=== PATIENT | female | born 1950 | race Caucasian/White ===

== ENCOUNTER 2016-05-26 10:19 | Emergency (ER) | payer SELFPAY ==
--- NOTE | 2016-05-26 10:50 | ER Document Report ---
ED General - General Chief Complaint: Shortness Of Breath Stated Complaint: LEFT SIDE NUMBNESS TRAVEL OUTSIDE OF THE [place] IN LAST 30 DAYS: No - HPI Patient complains to provider of: shortness of breath upper extremity numbness Notes: Shortness of breath and left upper extremity numbness upon leaving the shower this morning. Patient moving all 4 extremities. No signs of unilateral weakness. No past medical problems no recent travel - Related Data Allergies/Adverse Reactions: No Known Allergies Allergy (Verified 05/26/16 10:27) Past Medical History - Social History Smoking Status: Unknown if Ever Smoked Family History: Reviewed & Not Pertinent Patient has suicidal ideation: No Patient has homicidal ideation: No Pulmonary Medical History: Denies: Hx Tuberculosis Renal/ Medical History: Denies: Hx Peritoneal Dialysis Past Surgical History: Reports: Hx Orthopedic Surgery - L ANKLE Review of Systems - Review of Systems Notes: Shortness of breath left arm numbness Physical Exam - Vital signs Vitals: Temp Pulse Resp BP Pulse Ox 97.7 F 91 18 147/97 H 99 05/26/16 10:32 05/26/16 10:32 05/26/16 10:32 05/26/16 10:32 05/26/16 10:32 - Cardiovascular Rhythm: Regular Heart sounds: Normal auscultation Course - Vital Signs Vital signs: Temp Pulse Resp BP Pulse Ox 97.7 F 91 18 147/97 H 99 05/26/16 10:32 05/26/16 10:32 05/26/16 10:32 05/26/16 10:32 05/26/16 10:32
[2016-05-26] MEDS ORDERED: PSEUDOEPHEDRINE HCL 30 MG TABLET PO ONE (11:03)
--- NOTE | 2016-05-26 11:08 | ER Document Report ---
ED General - General Mode of Arrival: Ambulatory Information source: Patient TRAVEL OUTSIDE OF THE [place] IN LAST 30 DAYS: No - HPI Patient complains to provider of: Shortness of Breath Onset: This morning Associated symptoms: Other - see notes above <BREE LIRA - Last Filed: 05/26/16 11:57> <KAREN ORNELAS - Last Filed: 05/26/16 18:21> - General Chief Complaint: Shortness Of Breath Stated Complaint: LEFT SIDE NUMBNESS Notes: 65 year old female presents to the ED complaining of shortness of breath and right arm numbness and tingling that started this morning. Patient reports that this has never happened before. Over the past few days, the patient has been having sinus congestion, drainage, and and a sensation that her ears are "plugged." Patient is also complaining of dizziness that is exacerbated with certain head movements. Patient denies any generalized pain or exerting herself to the point of straining her right arm. Patient does not have a primary care provider. (BREE LIRA) - Related Data Allergies/Adverse Reactions: No Known Allergies Allergy (Verified 05/26/16 10:27) Past Medical History - General Information source: Patient - Social History Smoking Status: Unknown if Ever Smoked Family History: Reviewed & Not Pertinent Patient has suicidal ideation: No Patient has homicidal ideation: No Pulmonary Medical History: Denies: Hx Tuberculosis Renal/ Medical History: Denies: Hx Peritoneal Dialysis Past Surgical History: Reports: Hx Cholecystectomy - 3 years ago, Hx Orthopedic Surgery - L ANKLE <BREE LIRA - Last Filed: 05/26/16 11:57> Review of Systems - Review of Systems Constitutional: No symptoms reported EENT: See HPI, Sinus pressure, Sinus discharge, Other - ears feel "plugged" Cardiovascular: No symptoms reported Respiratory: See HPI, Short of breath Gastrointestinal: No symptoms reported Genitourinary: No symptoms reported Female Genitourinary: No symptoms reported Musculoskeletal: No symptoms reported Skin: No symptoms reported Hematologic/Lymphatic: No symptoms reported Neurological/Psychological: See HPI, Numbness - right arm, Tingling - right arm -: Yes All other systems reviewed and negative <BREE LIRA - Last Filed: 05/26/16 11:57> Physical Exam - Vital signs Interpretation: Normal - General General appearance: Appears well, Alert - HEENT Head: Normocephalic, Atraumatic Eyes: Normal Pupils: PERRL Tympanic membrane: Other - Fluid behind bilateral tympanic membranes, left greater than right. No: Hemotympanum, Injected Mouth/Lips: Normal Mucous membranes: Normal Pharynx: Normal - Respiratory Respiratory status: No respiratory distress Chest status: Nontender Breath sounds: Normal Chest palpation: Normal - Cardiovascular Rhythm: Regular Heart sounds: Normal auscultation Murmur: No - Abdominal Inspection: Normal Distension: No distension Bowel sounds: Normal Tenderness: Nontender Organomegaly: No organomegaly - Back Back: Normal, Nontender - Extremities General upper extremity: Normal inspection, Tender, Normal color, Normal ROM, Normal temperature General lower extremity: Normal inspection, Nontender, Normal color, Normal ROM , Normal temperature, Normal weight bearing. No: Esthela's sign Shoulder: Normal Arm: Tender - Tender over her proximal left bicep - Neurological Neuro grossly intact: Yes Cognition: Normal Orientation: AAOx4 [place] Coma Scale Eye Opening: Spontaneous [place] Coma Scale Verbal: Oriented [place] Coma Scale Motor: Obeys Commands H[place] Coma Scale Total: 15 Speech: Normal Motor strength normal: LUE, RUE, LLE, RLE Sensory: Normal - Psychological Associated symptoms: Normal affect, Normal mood - Skin Skin Temperature: Warm Skin Moisture: Dry Skin Color: Normal <KAREN ORNELAS - Last Filed: 05/26/16 18:21> - Vital signs Vitals: Temp Pulse Resp BP Pulse Ox 97.7 F 91 18 147/97 H 99 05/26/16 10:32 05/26/16 10:32 05/26/16 10:32 05/26/16 10:32 05/26/16 10:32 Course - Laboratory Result Diagrams: 05/26/16 11:20 05/26/16 11:20 <BREE LIRA - Last Filed: 05/26/16 11:57> - Laboratory Result Diagrams: 05/26/16 11:20 05/26/16 11:20 <KAREN ORNELAS - Last Filed: 05/26/16 18:21> - Re-evaluation Re-evalutation: 05/26/16 Patient is a 65-year-old who comes in with feeling off balance. Patient's has been given Sudafed and symptoms have resolved. Patient has had congestion, postnasal drip, and has bulging of her tympanic membranes bilaterally with no erythema. Distant with seasonal rhinitis. Patient also has an elevated TSH. Patient is going to be started on levothyroxine and is instructed to follow-up with a primary care doctor when she is able, which will likely be September. Stable for discharge. Return if any worsening or concerning symptoms. (KRAEN ORNELAS) - Vital Signs Vital signs: Temp Pulse Resp BP Pulse Ox 98.8 F 82 16 151/93 H 100 05/26/16 12:57 05/26/16 12:57 05/26/16 12:57 05/26/16 12:57 05/26/16 12:57 - Laboratory Laboratory results interpreted by me: 05/26/16 05/26/16 05/26/16 11:20 11:20 11:20 RBC 5.37 H MCV 78 L MCH 26.2 L RDW 14.2 H Plt Count 138 L Sodium 145.5 H Total Bilirubin 1.4 H Cholesterol 201.92 H TSH 6.43 H Discharge <BREE LIRA - Last Filed: 05/26/16 11:57> <KAREN ORNELAS - Last Filed: 05/26/16 18:21> - Discharge Clinical Impression: Dizziness Hypothyroidism Qualifiers: Hypothyroidism type: unspecified Qualified Code(s): E03.9 - Hypothyroidism, unspecified Allergic rhinitis Qualifiers: Allergic rhinitis trigger: unspecified Allergic rhinitis seasonality: seasonal Qualified Code(s): J30.2 - Other seasonal allergic rhinitis Condition: Stable Disposition: HOME, SELF-CARE Instructions: Dizziness ([facility]), Hypothyroidism ([facility]), Non-Sedating Prescription Antihistamine ([facility]), Hay Fever ([facility]) Prescriptions: Cetirizine HCl [Zyrtec 10 mg Tablet] 1 tab PO DAILY #30 tablet Levothyroxine Sodium 25 mcg PO DAILY #90 tablet Scribe Attestation: 05/26/16 18:20 I personally performed the services described in the documentation, reviewed and edited the documentation which was dictated to the scribe in my presence, and it accurately records my words and actions. (KAREN ORNELAS) Scribe Documentation - Scribe Written by Scribe:: Angela Felix 05/26/2016 1220 acting as scribe for :: Kathi <BREE LIRA - Last Filed: 05/26/16 11:57>
[2016-05-26 11:29] LABS: ABSOLUTE MONOCYTES (AUTO) 0.3 10^3/uL (0.1-1.4); ABSOLUTE NEUT (AUTO) 4.6 10^3/uL (1.7-8.2); BASOPHILS % (AUTO) 0.3 % (0-2); EOSINOPHILS % (AUTO) 0.7 % (0-6); HEMATOCRIT 41.7 % (36.0-47.0); HEMOGLOBIN 14.1 g/dL (12.0-15.5); HGB HCT DIFFERENCE 0.6; LYMPHOCYTES % (AUTO) 17.3 % (13-45); MEAN CORPUSCULAR HEMOGLOBIN 26.2 pg (27.0-33.4); MEAN CORPUSCULAR HGB CONC 33.7 g/dL (32.0-36.0); MEAN CORPUSCULAR VOLUME 78 fl (80-97); MONOCYTES % (AUTO) 4.2 % (3-13); RED BLOOD COUNT 5.37 10^6/uL (3.72-5.28); RED CELL DISTRIBUTION WIDTH 14.2 % (11.5-14.0); SEGMENTED NEUTROPHILS % (AUTO) 77.5 % (42-78)
[2016-05-26 11:51] LABS: ALANINE AMINOTRANSFERASE 26 U/L (9-52); ALBUMIN 4.5 g/dL (3.5-5.0); ALKALINE PHOSPHATASE 95 U/L (38-126); ANION GAP 15 (5-19); ASPARTATE AMINO TRANSFERASE 31 U/L (14-36); BILIRUBIN,DIRECT 0.2 mg/dL (0.0-0.4); BILIRUBIN,TOTAL 1.4 mg/dL (0.2-1.3); BLOOD UREA NITROGEN 16 mg/dL (7-20); CARBON DIOXIDE 25 mmol/L (22-30); CHLORIDE 106 mmol/L (98-107); CHOLESTEROL 201.92 mg/dL (0-200); CREATININE RESULT 0.81 mg/dL (0.52-1.25); Direct HDL 76 mg/dL (>40); GLUCOSE 89 mg/dL (75-110); LIPASE 54.8 U/L (23-300); MAGNESIUM 1.9 mg/dL (1.6-2.3); POTASSIUM 3.7 mmol/L (3.6-5.0); SODIUM 145.5 mmol/L (137-145); TOTAL PROTEIN 7.4 g/dL (6.3-8.2); TRIGLYCERIDES 128 mg/dL (<150)
[2016-05-26 12:01] LABS: DIRECT LDL 91 mg/dL (<100)
[2016-05-26 12:59] VITALS: BP 151/93
--- NOTE | 2016-05-26 21:10 | EKG REPORT ---
SEVERITY:- OTHERWISE NORMAL ECG - SINUS RHYTHM ATRIAL PREMATURE COMPLEX : Confirmed by: Gricelda Hamm MD 26-May-2016 21:09:01
== END 2016-05-26 13:01 | disposition home or self-care (01) ==
LOC: ER 10:19
DX: R42 Dizziness and giddiness (principal); E03.9 Hypothyroidism, unspecified; J30.2 Other seasonal allergic rhinitis; R06.02 Shortness of breath; R20.0 Anesthesia of skin; R09.81 Nasal congestion
CPT/HCPCS: 36415; 71020; 80053; 80061; 83690; 83735; 84443; 84484; 85025; 93005; 93010; 99284

== ENCOUNTER → 2016-12-09 | Outpatient (CLI) | payer MEDICARE ==
--- NOTE | 2016-12-11 16:17 | RADIOLOGY REPORT (SQ) ---
EXAM DESCRIPTION: MRI BREAST BILAT W AND/OR WO COMPLETED DATE/TIME: 12/09/2016 8:32 am REASON FOR STUDY: NEOPLASM OF UNCERTAIN OF RIGHT BREAST D48.61 NEOPLASM OF UNCERTAIN BEHAVIOR OF RI GHT BREAST COMPARISON: Mammography. Ultrasound. PATHOLOGIC CORRELATION: None. CONTRAST TYPE AND DOSE: 20 mL Prohance. RENAL FUNCTION: GFR > 60. TECHNIQUE: MR imaging performed with a dedicated breast coil. Pre contrast T1 and T2 weighted images . Pre contrast and post contrast enhanced T1 weighted images with fat saturation. Subtraction images, 3D thick and thin MIPS, and kinetic analysis performed on an independent workstat ion. ([employer] workstation) Magnet strength: 1.5 T LIMITATIONS: None. FINDINGS: BREAST DENSITY: c. The breasts are heterogeneously dense, which may obscure small masses. BACKGROUND PARENCHYMAL ENHANCEMENT:Minimal. RIGHT BREAST: Diffuse irregular heterogeneous enhancing mass involving the Rich RT of upper inner and outer quadrants as well as extension to the lower outer quadrant. Type 1 enhancement curves. No c lumped, regional/segmental ductal enhancement. CHEST WALL: Normal tissue planes. No abnormal internal mammary nodes. AXILLA: Normal axillary and retro-pectoral nodes. LEFT BREAST:No enhancing or suspicious masses. No clumped, regional/segmental ductal enhancement. CHEST WALL: Normal tissue planes. No abnormal internal mammary nodes. AXILLA: Normal axillary and retro-pectoral nodes. OTHER:No identified liver, bone, or lung lesions. No other significant incidental findings. IMPRESSION: Diffuse abnormality in the right breast. Although diffuse malignancy is the most likely diagnosis, morphology and enhancement curves raise the additional differential diagnoses of fibromat osis of the breast, and Pash or pseudo angiomatous stromal hyperplasia. BIRAD: RIGHT BREAST: 4B-Suspicious abnormality: Lesion which may require intervention with intermedi ate suspicion for malignancy. LEFT BREAST: 1 Negative. RECOMMENDATION: RECOMMENDED FOLLOW-UP: Multiple quadrant biopsies. TECHNICAL DOCUMENTATION: JOB ID: [id number] [employer]- All Rights Reserved
== END ==
LOC: RAD 06:56
PROVIDERS: ATTEND Physician Assistant
DX: D48.61 Neoplasm of uncertain behavior of right breast (principal)
CPT/HCPCS: 82565; A9576; C8906; 77059

== ENCOUNTER → 2016-12-18 | Day surgery (SDC) | payer MEDICARE ==
--- NOTE | 2016-12-27 17:31 | WOMENS IMAGING REPORT ---
EXAM DESCRIPTION: U/S BREAST BX; U/S BREAST BX EACH ADDT'L COMPLETED DATE/TIME: 12/18/2016 3:45 pm REASON FOR STUDY: (D48.61)NEOPLASM OF UNCERTAIN BEHAVIOR OF LEFT BREAST; RIGHT BREAST MASS.; (D48.61 )NEOPLASM OF UNCERTAIN BEHAVIOR OF RIGHT BREAST D48.62 NEOPLASM OF UNCERTAIN BEHAVIOR OF LEFT BREAST D48.61 NEOPLASM OF UNCERTAIN BEHAVIOR OF RIGHT BREAST COMPARISON: Breast MRI 12/09/2016 Mammograms and ultrasound 12/04/2016 TECHNIQUE: The procedure was discussed with the patient and the patient agreed to proceed. The patient was scanned and the areas of interest in the 12 o'clock position, 10 o'clock position, an d 7 to 8 o'clock position breast were localized. This correlates with the area of concern on prior i maging studies. This area was targeted for ultrasound-guided core biopsy. 12 o clock right breast: After sterile skin prep and 2.0 mL local lidocaine 1% for skin and deep tissue anesthesia, a 14 gauge coaxial core biopsy needle was used to obtain several cores of tissue from the lesion. Under ultras ound guidance, a ribbon clip was placed in the areas sampled. There were no immediate post-procedure complications. 10 o clock right breast: After sterile skin prep and 2.0 mL local lidocaine 1% for skin and deep tissue anesthesia, a 14 gauge coaxial core biopsy needle was used to obtain several cores of tissue from the lesion. Under ultras ound guidance, a coil clip was placed in the areas sampled. There were no immediate post-procedure c omplications. 7-8 o clock right breast: After sterile skin prep and 2.0 mL local lidocaine 1% for skin and deep tissue anesthesia, a 14 gauge coaxial core biopsy needle was used to obtain several cores of tissue from the lesion. Under ultras ound guidance, a pellet clip was placed in the areas sampled. There were no immediate post-procedure complications. MAMMOGRAM: Post-procedure two view mammogram was NOT acquired in the digital mammogram suite. No sig nificant hematoma. Pathology yields a diagnosis of invasive ductal carcinoma at all 3 biopsy sites, right breast Pathology is concordant. LIMITATIONS: None. FINDINGS: Ultrasound guided breast biopsy as described above. POST PROCEDURE MAMMOGRAMS FOR MARKER PLACEMENT: No IMPRESSION: ULTRASOUND-GUIDED CORE BIOPSY OF THE RIGHT BREAST YIELDS A DIAGNOSIS OF INVASIVE DUCTAL CARCINOMA AT THE 12 O'CLOCK POSITION, 10 O'CLOCK POSITION, AND 7 TO 8 O'CLOCK POSITION COMMENT: BI-RADS 6 Known biopsy-proven malignancy. Appropriate action should be taken. COMMUNICATION: THESE FINDINGS WERE DISCUSSED WITH GT NESS, 1400 HOURS 12/20/2016 Patient medication list reviewed: Yes- Quality ID# [id number]:Eligible professional attests to documenting i n the medical record they obtained, updated, or reviewed the patient's current medications. TECHNICAL DOCUMENTATION: JOB ID: [id number] [employer] All Rights Reserved
== END ==
LOC: RAD 13:43
PROVIDERS: ATTEND Physician Assistant
PROC: 0HBT3ZX Excision of Right Breast, Percutaneous Approach, Diagnostic (ICD-10-PCS; principal; 2016-12-18)
DX: D48.62 Neoplasm of uncertain behavior of left breast (principal); D48.61 Neoplasm of uncertain behavior of right breast
CPT/HCPCS: 19083; 19084; 88305; 88341; 88342

== ENCOUNTER → 2017-01-02 | Outpatient (CLI) | payer MEDICARE ==
--- NOTE | 2017-01-02 15:12 | RADIOLOGY REPORT (SQ) ---
EXAM DESCRIPTION: CT SOFT TISSUE NECK WITH COMPLETED DATE/TIME: 01/02/2017 10:24 am REASON FOR STUDY: BREAST CA (C50.411) C50.411 MALIG NEOPLM OF UPPER-OUTER QUADRANT OF RIGHT FEMALE COMPARISON: CT chest abdomen and pelvis same date TECHNIQUE: Post IV contrasted scanning from skull base through lung apices with review of bone, soft tissue and lung windows. Reconstructed coronal and sagittal MPR images reviewed. All images stored on PACS. All CT scanners at this facility use dose modulation, iterative reconstruction, and/or weight based d osing when appropriate to reduce radiation dose to as low as reasonably achievable (ALARA). [facility]: Dose Right [facility]: CareDose [facility]: Dose Right [facility]: Teradose 4D [facility]: [employer] CONTRAST TYPE AND DOSE: 50 mL Isovue 370- low osmolar. RENAL FUNCTION: Creatinine 1.14 RADIATION DOSE: 9.4 mGy . LIMITATIONS: None. FINDINGS: SKULL BASE: Intact. MAJOR SALIVARY GLANDS: No solid or cystic masses. No inflammatory changes. LYMPHADENOPATHY: No adenopathy. MUCOSAL MASSES OR ASYMMETRY: No mucosal masses or asymmetry. LARYNX/CORDS: No abnormal findings. VASCULAR STRUCTURES: The major vessels are patent. LUNG APICES: Clear. BONES: Diffuse bony metastatic lesions throughout the cervical spine and skullbase. THYROID: Normal size. No masses. PARANASAL SINUSES: Clear. OTHER: No other significant finding. IMPRESSION: Diffuse bony metastatic disease. No compression fracture in the field of view. TECHNICAL DOCUMENTATION: JOB ID: [id number] Quality ID # 436: Final reports with documentation of one or more dose reduction techniques (e.g., Au tomated exposure control, adjustment of the mA and/or kV according to patient size, use of iterative reconstruction technique) 2010 [employer]- All Rights Reserved
--- NOTE | 2017-01-02 15:27 | RADIOLOGY REPORT (SQ) ---
EXAM DESCRIPTION: CT CHEST WITH; CT ABD/PELVIS WITH IV ONLY COMPLETED DATE/TIME: 01/02/2017 10:24 am REASON FOR STUDY: BREAST CA (C50.411) C50.411 MALIG NEOPLM OF UPPER-OUTER QUADRANT OF RIGHT FEMALE COMPARISON: CT abdomen pelvis 08/02/2013, 05/20/2013 CONTRAST TYPE AND DOSE: contrast/concentration: Isovue 370.00 mg/ml; Total Contrast Delivered: 56.0 ml; Total Saline Delivered: 65.0 ml RENAL FUNCTION: Creatinine 1.14 TECHNIQUE: CT scan of the chest performed using helical scanning technique with dynamic intravenous contrast injection. Images reviewed with lung, soft tissue and bone windows. Reconstructed coronal a nd sagittal MPR images reviewed. All images stored on PACS. CT scan of the abdomen and pelvis performed with intravenous and without oral contrastusing helical s juaquin technique with dynamic intravenous contrast injection. Images reviewed with lung, soft tissu e and bone windows. Reconstructed coronal and sagittal MPR images reviewed. Delayed images for eval uation of the urinary system also acquired and evaluated. All images stored on PACS. All CT scanners at this facility use dose modulation, iterative reconstruction, and/or weight based d osing when appropriate to reduce radiation dose to as low as reasonably achievable (ALARA). [facility]: Dose Right [facility]: CareDose [facility]: Dose Right [facility]: Teradose 4D [facility]: [employer] RADIATION DOSE: 11.5 mGy . LIMITATIONS: None. FINDINGS: CHEST: LUNGS AND PLEURA: No opacities, nodules, masses. No pneumothorax. No effusions. HILAR AND MEDIASTINAL STRUCTURES: Heavily calcified right paratracheal, precarinal, subcarinal and bi lateral hilar lymph nodes from old granulomatous disease. . HEART AND VASCULAR STRUCTURES: No aneurysm or dissection. No central pulmonary emboli. No pericardi al effusion. HARDWARE: None. THYROID AND OTHER SOFT TISSUES: Thyroid unremarkable. 7 mm and 8 mm right axillary lymph nodes are p resent. 2.5 cm mass right upper inner quadrant breast, 2.3 cm right upper outer quadrant mass, 2.8 c m right lower outer quadrant mass, all previously biopsied and shown to be malignant. BONES: Diffuse lytic bony metastatic disease. No compression deformity OTHER: No other significant finding. ABDOMEN AND PELVIS: LIVER: Normal size. No masses. No dilated ducts. Multiple calcified granulomas SPLEEN: Normal size. No focal lesions. Multiple calcified granulomas PANCREAS: No masses. No significant calcifications. No adjacent inflammation or peripancreatic fluid collections. Pancreatic duct not dilated. GALLBLADDER: Surgically absent ADRENAL GLANDS: No significant masses or asymmetry. RIGHT KIDNEY AND URETER: No solid masses. No urinary stones. 1.3 cm right midpole cortical scar wit h dystrophic calcification. No hydronephrosis or hydroureter. LEFT KIDNEY AND URETER: No solid masses. No urinary stones. 1.7 cm left lower pole cortical scar wi th dystrophic calcification. No hydronephrosis or hydroureter. AORTA AND VESSELS: No aneurysm. No dissection. Renal arteries, SMA, celiac without stenosis. RETROPERITONEUM: No retroperitoneal adenopathy, hemorrhage or masses. BOWEL AND PERITONEAL CAVITY: No masses or inflammatory changes. No free fluid or peritoneal masses. APPENDIX: Normal. ABDOMINAL WALL: No masses. No hernias. BONES: No significant or acute findings. PELVIS: No other significant finding. Normal size female pelvic organs. IMPRESSION: Right breast malignant masses with worrisome axillary adenopathy Diffuse skeletal metastatic lesions. No vertebral bodies are identified to at-risk for compression d eformity TECHNICAL DOCUMENTATION: JOB ID: [id number] Quality ID # [id number]: Final reports with documentation of one or more dose reduction techniques (e.g., Au tomated exposure control, adjustment of the mA and/or kV according to patient size, use of iterative reconstruction technique) 2010 [employer]- All Rights Reserved
== END ==
LOC: RAD 09:27
PROVIDERS: ATTEND Internal Medicine
DX: C50.411 Malignant neoplasm of upper-outer quadrant of right female breast (principal); C79.51 Secondary malignant neoplasm of bone
CPT/HCPCS: 70491; 71260; 74177

== ENCOUNTER → 2017-01-06 | Outpatient (CLI) | payer MEDICARE ==
--- NOTE | 2017-01-06 14:05 | RADIOLOGY REPORT (SQ) ---
EXAM DESCRIPTION: NM WHOLE BODY BONE SCAN COMPLETED DATE/TIME: 01/06/2017 1:49 pm REASON FOR STUDY: C50.411 MALIGNANT NEOPLASM OF UPPER-OUTER QUADRANT OF RIGHT REMALE BREAST C50.411 MALIG NEOPLM OF UPPER-OUTER QUADRANT OF RIGHT FEMALE COMPARISON: No available imaging studies for comparison. RADIONUCLIDE AND DOSE: 22.0 millicuries Tc99m MDP. The route of agent administration: Intravenous. ADDITIONAL DRUGS AND DOSES: None. TECHNIQUE: Routine delayed images at 3 hour post radionuclide injection acquired of the bony skeleto n including anterior and posterior whole-body projections and additional focused images as needed. LIMITATIONS: None. FINDINGS: BONES: Small areas of increased uptake in skull, spine ribs, superior pubic rami. KIDNEYS: Symmetric excretion without obstruction. OTHER: No other significant finding. IMPRESSION: Skeletal metastasis. COMMENT: Quality measure 147: Current bone scan is compared with any available plain radiographs, p rior bone scans, and CT/MRI. TECHNICAL DOCUMENTATION: JOB ID: [id number] [employer]- All Rights Reserved
== END ==
LOC: RAD 10:42
PROVIDERS: ATTEND Internal Medicine
DX: C50.411 Malignant neoplasm of upper-outer quadrant of right female breast (principal); C79.51 Secondary malignant neoplasm of bone
CPT/HCPCS: 78306; A9561; Q9969

== ENCOUNTER 2017-01-15 07:00 | Day surgery (SDC) | payer MEDICARE ==
[2017-01-13 12:44] LABS: HEMATOCRIT 39.7 % (36.0-47.0); HEMOGLOBIN 13.5 g/dL (12.0-15.5); HGB HCT DIFFERENCE 0.8; MEAN CORPUSCULAR HEMOGLOBIN 26.1 pg (27.0-33.4); MEAN CORPUSCULAR HGB CONC 33.9 g/dL (32.0-36.0); MEAN CORPUSCULAR VOLUME 77 fl (80-97); RED BLOOD COUNT 5.16 10^6/uL (3.72-5.28); RED CELL DISTRIBUTION WIDTH 15.7 % (11.5-14.0); WHITE BLOOD COUNT 6.7 10^3/uL (4.0-10.5)
--- NOTE | 2017-01-13 13:57 | EKG REPORT ---
SEVERITY:- ABNORMAL ECG - SINUS TACHYCARDIA RAA, CONSIDER BIATRIAL ABNORMALITIES BORDERLINE INFERIOR Q WAVES : Confirmed by: Gerry Clinton 13-Jan-2017 13:56:23
[~2017-01-15 07:00] MED LIST: ACETAMINOPHEN 325 MG TABLET PO PRN; CEFAZOLIN 1 GM/D5W RTU 1 GM/50 ML RTUPB IV PRN; LACTATED RINGERS 1000 ML IV PRN; LIDOCAINE 0.5% INJ-PF (5 MG/ML) 50 ML SDV SUBCUT PRN; LIDOCAINE 1%/EPINEPHRINE INJ 20 ML VIAL ONE
[2017-01-15] MEDS ORDERED: MIDAZOLAM 2 MG/2 ML INJ ONE ×2 (08:43→08:44)
[2017-01-15] MEDS ORDERED: FENTANYL CITRATE INJ/PF 100 MCG/2 ML AMPUL ONE (08:43)
[2017-01-15] MEDS ORDERED: PROPOFOL INJ 200 MG/20 ML VIAL IV ONE (08:44)
[2017-01-15] MEDS ORDERED: OXYCODONE-ACETAMINOPHEN 5-325 MG TABLET PO PRN ×2 (09:13)
[2017-01-15] MEDS ORDERED: MEPERIDINE HCL/PF INJ 25 MG/1 ML DISP.SYRIN IV PRN (09:13)
[2017-01-15] MEDS ORDERED: FENTANYL CITRATE INJ/PF 100 MCG/2 ML AMPUL IV PRN ×3 (09:13)
[2017-01-15] MEDS ORDERED: PROMETHAZINE HCL INJ 25 MG/1 ML VIAL IV PRN ×2 (09:13)
[2017-01-15] MEDS ORDERED: DIPHENHYDRAMINE HCL 50 MG/ML VIAL IV PRN (09:13)
[2017-01-15] MEDS ORDERED: MORPHINE SULFATE 10 MG/ML INJ IV PRN (09:13)
--- NOTE | 2017-01-15 09:42 | PDOC DISCHARGE SUMMARY ---
Discharge Summary (SDC) - Discharge Final Diagnosis: Breast cancer Date of Surgery: 01/15/17 Discharge Date: 01/15/17 Condition: Stable Treatment or Instructions: Wound Care: You may shower in 48 hours. Leave paper bandaids intact until follow up. Warm water/soap may was over area. Do not scrub over incision sites. Pat dry. Cover if needed. You may take Advil or Aleve for pain. Call clinic or go to ER if you experience shortness of breath, swelling around incision sites or neck, foul-smelling drainage. Return to clinic in two weeks for a follow up appointment. [facility]: [phone] Referrals: GT NESS PA [Primary Care Provider] - Discharge Diet: As Tolerated Discharge Activity: Activity As Tolerated Report the Following to Your Physician Immediately: Shortness of Breath, Increase in Pain, Fever over 101 Degrees, Redness, Swelling, Warmth, Drainage- Foul Smelling
--- NOTE | 2017-01-15 09:43 | Operative Report ---
Operative Report DATE OF SURGERY: 01/15/17 PREOPERATIVE DIAGNOSIS: Metastatic breast carcinoma POSTOPERATIVE DIAGNOSIS: Same OPERATION: 1. Focused ultrasound of the left neck. 2. Ultrasound directed insertion of single lumen 9 English Hernandez catheter into left internal jugular vein. 3. Interpretation of intraoperative fluoroscopy SURGEON: SHIVANI PERKINS 1ST HEAD BANDER AND LINER OPERATOR: SUN RAIN ANESTHESIA: LMAC TISSUE REMOVED OR ALTERED: None COMPLICATIONS: None ESTIMATED BLOOD LOSS: Scant INTRAOPERATIVE FINDINGS: See below PROCEDURE: Patient was seen in the preop holding area the left neck was marked. She was then taken to the main operating room, laid supine, both arms tucked, neck and chest wall exposed, and prepped and draped in sterile fashion. Appropriate level of LMAC anesthesia was induced. The patient was comfortable. Surgical plan and surgical timeout were conducted. Findings were significant by ultrasonography of a compressible, appropriate caliber left internal jugular vein suitable for cannulation. Skin was anesthetized with 1% plain lidocaine. Under real-time ultrasound, the left internal jugular vein was cannulated with micro needle and wire. Confirmation of appropriate passage of the wire into the central vein confirmed by fluoroscopy. Physical site for placement of the port was chosen in the left subclavian position. Skin was anesthetized with 1% plain lidocaine. 23-1/2 cm incision was made in the skin subcutaneous pocket developed with blunt dissection. The catheter tract was then anesthetized with 1% lidocaine. There was then threaded using the tunneler between the 2 incisions, trimmed to the appropriate length of 21 cm, and attached to the port with the plastic ring. The micro wire was then switched over to a conventional guidewire using the micro introducer sheath. We now threaded the dilator and introducer sheath over the conventional guidewire, leaving the sheath in position by removing the dilator and wire. The catheter was then threaded into the sheath into the left internal jugular vein, sheath stripped away leaving the catheter in good position. The tip of the catheter was at the junction of the dominant and SVC. There was no kinking of the catheter at the level of the neck. Catheter was aspirated and flushed with dilute heparinized saline. Wounds closed with 3-0 Vicryl benzoin and Steri-Strips. Patient tolerated procedure well, taken recovery in stable condition. The physician orthodontic technician assistant, Ms. Garcia, provided assistance during this case by: Assisting retracting tissue, instillation of local anesthesia and closure of skin incisions.
--- NOTE | 2017-01-15 12:28 | RADIOLOGY REPORT (SQ) ---
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 FLUOROSCOPY TIME: 0.1 minutes 5 digital radiographic images saved to PACS. TECHNIQUE: Intra-operative images acquired during surgical procedure to evaluate progress. NUMBER OF IMAGES: 5 digital radiographic images LIMITATIONS: None. FINDINGS: Intra procedural imaging and fluoro during left-sided permanent central line placement by the surgeon in the operating room. Please see the operative report for further details IMPRESSION: Intra procedural imaging and fluoro COMMENT: Quality ID [id number]: Final reports for procedures using fluoroscopy that document radiation exp osure indices, or exposure time and number of fluorographic images (if radiation exposure indices are not available) Please consult full operative report of the attending physician for description of the procedure. TECHNICAL DOCUMENTATION: JOB ID: [id number] [employer]- All Rights Reserved
[2017-01-15 12:38] VITALS: BP 120/77
--- NOTE | 2017-01-15 19:32 | EKG REPORT ---
SEVERITY:- ABNORMAL ECG - SINUS TACHYCARDIA RIGHT ATRIAL ABNORMALITY : Confirmed by: Gricelda Hamm MD 15-Jan-2017 19:31:23
== END 2017-01-15 11:45 | disposition home or self-care (01) ==
LOC: OROUT 07:00
PROVIDERS: ATTEND Surgery
PROC: 05HN33Z Insertion of Infusion Device into Left Internal Jugular Vein, Percutaneous Approach (ICD-10-PCS; principal; 2017-01-15 09:00)
DX: C50.911 Malignant neoplasm of unspecified site of right female breast (principal); C79.51 Secondary malignant neoplasm of bone; E07.9 Disorder of thyroid, unspecified; I10 Essential (primary) hypertension; Z79.899 Other long term (current) drug therapy
CPT/HCPCS: 36561; 93005 ×2; 36415; 85027; 77001; 93010 ×2; C1752; C1788; J2250; J0690; J3010; J3490; J2704; J1642; 532

== ENCOUNTER 2017-01-22 13:52 | Outpatient (CLI) | payer MEDICARE ==
[2017-01-22] MEDS ORDERED: NORMAL SALINE 1000 ML 1,000 ML IV PRN (13:56)
[2017-01-22 14:34] VITALS: BP 93/69
== END 2017-01-22 16:22 | disposition home or self-care (01) ==
LOC: II 13:52 → 5TH 13:53 → II 16:22
PROVIDERS: ATTEND Internal Medicine
PROC: 3E0437Z Introduction of Electrolytic and Water Balance Substance into Central Vein, Percutaneous Approach (ICD-10-PCS; principal; 2017-01-22)
DX: E86.0 Dehydration (principal); C50.411 Malignant neoplasm of upper-outer quadrant of right female breast
CPT/HCPCS: 96360; 96375

== ENCOUNTER 2017-01-23 11:00 | Outpatient (CLI) | payer MEDICARE ==
[~2017-01-23 11:00] MED LIST changes: -ACETAMINOPHEN 325 MG TABLET PO PRN; -CEFAZOLIN 1 GM/D5W RTU 1 GM/50 ML RTUPB IV PRN; -LACTATED RINGERS 1000 ML IV PRN; -LIDOCAINE 0.5% INJ-PF (5 MG/ML) 50 ML SDV SUBCUT PRN; -LIDOCAINE 1%/EPINEPHRINE INJ 20 ML VIAL ONE; +NORMAL SALINE 1000 ML 1,000 ML IV PRN
[2017-01-23 12:10] VITALS: BP 99/64
== END 2017-01-23 14:15 | disposition home or self-care (01) ==
LOC: II 11:00 → 5TH 11:56 → II 14:15
PROVIDERS: ATTEND Internal Medicine
PROC: 3E0437Z Introduction of Electrolytic and Water Balance Substance into Central Vein, Percutaneous Approach (ICD-10-PCS; principal; 2017-01-23)
DX: E86.0 Dehydration (principal); C50.411 Malignant neoplasm of upper-outer quadrant of right female breast
CPT/HCPCS: 96360

== ENCOUNTER 2017-01-24 12:05 | Outpatient (CLI) | payer MEDICARE ==
[2017-01-24 15:16] VITALS: BP 116/72
== END 2017-01-24 15:01 | disposition home or self-care (01) ==
LOC: II 12:05 → 5TH 13:05 → II 15:01
PROVIDERS: ATTEND Internal Medicine
PROC: 3E0437Z Introduction of Electrolytic and Water Balance Substance into Central Vein, Percutaneous Approach (ICD-10-PCS; principal; 2017-01-24)
DX: E86.0 Dehydration (principal); C50.411 Malignant neoplasm of upper-outer quadrant of right female breast
CPT/HCPCS: 96360; 96375

== ENCOUNTER 2017-02-16 11:34 | Emergency (ER) | payer MEDICARE, MEDICAID ==
--- NOTE | 2017-02-16 12:14 | ER Document Report ---
ED Medical Screen (RME) - General Chief Complaint: Constipation Stated Complaint: BOWEL ISSUES Time Seen by Provider: 02/16/17 12:08 Mode of Arrival: Ambulatory Information source: Patient Notes: 66-year-old female who is receiving chemotherapy presents with complaints of constipation. Patient denies any fevers or chills denies any nausea or vomiting. Patient has not had a bowel movement 1 week. She has used Colace enemas with minimal improvement I have greeted and performed a rapid initial assessment of this patient. A comprehensive ED assessment and evaluation of the patient, analysis of test results and completion of the medical decision making process will be conducted by additional ED providers. PHYSICAL EXAMINATION: GENERAL: Well-appearing, well-nourished and in no acute distress. HEAD: Atraumatic, normocephalic. EYES: Pupils equal round extraocular movements intact, conjunctiva are normal. ENT: Nares patent NECK: Normal range of motion LUNGS: No respiratory distress Musculoskeletal: Normal range of motion NEUROLOGICAL: Normal speech, normal gait. PSYCH: Normal mood, normal affect. SKIN: Warm, Dry, normal turgor, no rashes or lesions noted. TRAVEL OUTSIDE OF THE [place] IN LAST 30 DAYS: No - Related Data Allergies/Adverse Reactions: No Known Allergies Allergy (Verified 02/16/17 11:38) Past Medical History - Past Medical History Cardiac Medical History: Reports: Hx Hypertension Denies: Hx Coronary Artery Disease, Hx Heart Attack Pulmonary Medical History: Denies: Hx Asthma, Hx Bronchitis, Hx COPD, Hx Pneumonia, Hx Tuberculosis Neurological Medical History: Denies: Hx Cerebrovascular Accident, Hx Seizures Renal/ Medical History: Denies: Hx Peritoneal Dialysis Musculoskeltal Medical History: Denies Hx Arthritis Past Surgical History: Reports: Hx Cholecystectomy - 3 years ago, Hx Orthopedic Surgery - L ANKLE - Immunizations Hx Diphtheria, Pertussis, Tetanus Vaccination: Yes - UNSURE WHEN History of Influenza Vaccine for 11/2016 - 04/2017 Season: No Physical Exam - Vital signs Vitals: Temp Pulse Resp BP Pulse Ox 97.8 F 109 H 20 130/75 H 99 02/16/17 11:40 02/16/17 11:40 02/16/17 11:40 02/16/17 11:40 02/16/17 11:40 Course - Vital Signs Vital signs: Temp Pulse Resp BP Pulse Ox 97.8 F 109 H 20 130/75 H 99 02/16/17 11:40 02/16/17 11:40 02/16/17 11:40 02/16/17 11:40 02/16/17 11:40
--- NOTE | 2017-02-16 12:41 | RADIOLOGY REPORT (SQ) ---
EXAM DESCRIPTION: KUB/ABDOMEN (SINGLE VIEW) COMPLETED DATE/TIME: 02/16/2017 12:24 pm REASON FOR STUDY: post opiod constipation COMPARISON: None. NUMBER OF VIEWS: One view. TECHNIQUE: Supine radiographic image of the abdomen acquired. LIMITATIONS: None. FINDINGS: BOWEL GAS PATTERN: Normal bowel gas pattern. No dilated loops. CONSTIPATION: marked CALCIFICATIONS: No suspicious calcifications. SOFT TISSUES: No gross mass or suggestion of organomegaly. HARDWARE: None in the abdomen. BONES: No acute fracture. No worrisome bone lesions. OTHER: No other significant finding. IMPRESSION: NO RADIOGRAPHIC EVIDENCE FOR ACUTE ABDOMINAL DISEASE. Marked constipation. TECHNICAL DOCUMENTATION: JOB ID: [id number] [employer]- All Rights Reserved
[2017-02-16] MEDS ORDERED: MINERAL OIL 30 ML UDCUP PR ONE (13:57)
--- NOTE | 2017-02-16 13:58 | ER Document Report ---
ED GI/ - General Chief Complaint: Constipation Stated Complaint: BOWEL ISSUES Time Seen by Provider: 02/16/17 12:08 Mode of Arrival: Ambulatory Information source: Patient Notes: 66 yo female with severe constipation, can feel it in rectum but won't come out. Takes senekot and miralax to no avail. Takes daily opiates for breast cancer, under tx. No vomiting. KUB shows constipation TRAVEL OUTSIDE OF THE [place] IN LAST 30 DAYS: No - Related Data Allergies/Adverse Reactions: No Known Allergies Allergy (Verified 02/16/17 11:38) Past Medical History - General Information source: Patient - Social History Smoking Status: Never Smoker Frequency of alcohol use: None Drug Abuse: None Lives with: Family Family History: Reviewed & Not Pertinent Patient has suicidal ideation: No Patient has homicidal ideation: No - Past Medical History Cardiac Medical History: Reports: Hx Hypertension Renal/ Medical History: Denies: Hx Peritoneal Dialysis Past Surgical History: Reports: Hx Cholecystectomy - 3 years ago, Hx Orthopedic Surgery - L ANKLE - Immunizations Hx Diphtheria, Pertussis, Tetanus Vaccination: Yes - UNSURE WHEN Review of Systems - Review of Systems Constitutional: No symptoms reported EENT: No symptoms reported Cardiovascular: No symptoms reported Respiratory: No symptoms reported Gastrointestinal: See HPI Genitourinary: No symptoms reported Female Genitourinary: No symptoms reported Musculoskeletal: No symptoms reported Skin: No symptoms reported Hematologic/Lymphatic: No symptoms reported Neurological/Psychological: No symptoms reported Physical Exam - Vital signs Vitals: Temp Pulse Resp BP Pulse Ox 97.8 F 109 H 20 130/75 H 99 02/16/17 11:40 02/16/17 11:40 02/16/17 11:40 02/16/17 11:40 02/16/17 11:40 Interpretation: Normal - General General appearance: Appears well, Alert - HEENT Head: Normocephalic, Atraumatic Eyes: Normal Conjunctiva: Normal Pupils: PERRL Neck: Supple - Respiratory Respiratory status: No respiratory distress Chest status: Nontender Breath sounds: Normal Chest palpation: Normal - Cardiovascular Rhythm: Regular Heart sounds: Normal auscultation Murmur: No - Abdominal Inspection: Normal Distension: No distension. No: Distended, Tympanitic Bowel sounds: Normal Tenderness: Nontender. No: Tender Organomegaly: No organomegaly - Rectal Tenderness: Yes - exteranl hemorrhoids - Back Back: Normal, Nontender. No: CVA tenderness - Extremities General upper extremity: Normal inspection, Nontender, Normal color, Normal ROM , Normal temperature General lower extremity: Normal inspection, Nontender, Normal color, Normal ROM , Normal temperature, Normal weight bearing. No: Esthela's sign - Neurological Neuro grossly intact: Yes Cognition: Normal Orientation: AAOx4 Hira Coma Scale Eye Opening: Spontaneous [place] Coma Scale Verbal: Oriented [place] Coma Scale Motor: Obeys Commands [place] Coma Scale Total: 15 Speech: Normal Motor strength normal: LUE, RUE, LLE, RLE Sensory: Normal - Psychological Associated symptoms: Normal affect, Normal mood - Skin Skin Temperature: Warm Skin Moisture: Dry Skin Color: Normal Course - Re-evaluation Re-evalutation: 02/16/17 complete relief of stool, feels much better, upon my first exam she has external hemorrhoids which will be tender due to disimpaction so will treat with anusol HC - Vital Signs Vital signs: Temp Pulse Resp BP Pulse Ox 98.1 F 117 H 20 112/88 H 99 02/16/17 16:53 02/16/17 16:53 02/16/17 11:40 02/16/17 16:53 02/16/17 16:53 Discharge - Discharge Clinical Impression: opiate induced obstipation Condition: Good Disposition: HOME, SELF-CARE Instructions: Constipation ([facility]) Additional Instructions: take over the counter colace three times per day along with the Miralax when you have regular soft bm's can decrease to 2 x per day of colace, then MAYBE to once a day with the miralax water daily- 2 liters to er if any abdominal pain, fever, anusol HC for the hemorrhoids and anal inflammation after the disimpaction ask your doctor about RELISTOR for opiate induced constipation Prescriptions: Hydrocortisone Acetate [Anusol Hc 25 mg Supp.rect] 1 supp.rect MS BID #14 supp.rect Referrals: GT NESS PA [Primary Care Provider] - Follow up as needed
[2017-02-16] MEDS ORDERED: LIDOCAINE 2% URO-JET 5 ML KIT MM ONE ×2 (14:11→15:56)
[2017-02-16] MEDS ORDERED: NA PHOS,M-B/NA PHOS,DI-BA (ADULT) 133 ML ENEMA PR ONE (16:01)
[2017-02-16 17:02] VITALS: BP 112/88
== END 2017-02-16 17:01 | disposition home or self-care (01) ==
LOC: ER 11:34
DX: K59.03 Drug induced constipation (principal); T40.605A Adverse effect of unspecified narcotics, initial encounter; I10 Essential (primary) hypertension; Z90.49 Acquired absence of other specified parts of digestive tract
CPT/HCPCS: 99283; 74000; A9270 ×2; J3490

== ENCOUNTER → 2017-03-05 | Outpatient (CLI) | payer MEDICARE, MEDICAID ==
--- NOTE | 2017-03-06 08:12 | XCELERA REPORT ---
[address] [address] Upper Extremity Venous Evaluation Name: SUE HOGUE Age: 66 yrs Gender: Female : 1950 Patient Status: Outpatient Patient Location: Study Date: 03/05/2017 01:58 PM Procedure: Unilateral duplex scan of the right upper extremity veins was performed, including responses to compression and other maneuvers. Reason For Study: PAIN Ordering Physician: MINDY DOMINGUEZ PA-C Performed By: Yamile Smith Right Side Venous Evaluation Normal vessel filling wall to wall, compression and augmentation as well as Colour flow down to the forearm veins. Interpretation Summary No duplex evidence of DVT or obstruction in the right upper extremity. : MINDY DOMINGUEZ PA-C > Kamran Tierney
== END ==
LOC: SP 13:49
PROVIDERS: ATTEND Physician Assistant Medical
DX: M79.601 Pain in right arm (principal); M79.89 Other specified soft tissue disorders
CPT/HCPCS: 93971

== ENCOUNTER 2017-03-08 11:23 | Emergency (ER) | payer MEDICARE, MEDICAID ==
--- NOTE | 2017-03-08 11:50 | RADIOLOGY REPORT (SQ) ---
EXAM DESCRIPTION: CT HEAD WITHOUT COMPLETED DATE/TIME: 03/08/2017 11:37 am REASON FOR STUDY: left sided numbnes x 1 hour COMPARISON: None. TECHNIQUE: Axial images acquired through the brain without intravenous contrast. Images reviewed wi th bone, brain and subdural windows. Images stored on PACS. All CT scanners at this facility use dose modulation, iterative reconstruction, and/or weight based d osing when appropriate to reduce radiation dose to as low as reasonably achievable (ALARA). [facility]: Dose Right [facility]: CareDose [facility]: Dose Right [facility]: Teradose 4D [facility]: Smart BetaVersity RADIATION DOSE: CT Rad equipment meets quality standard of care and radiation dose reduction techniq ues were employed. CTDIvol: 64.6 mGy. DLP: 1034 mGy-cm. 1033.75mGy. LIMITATIONS: None. FINDINGS: VENTRICLES: Normal size and contour. CEREBRUM: No masses. No hemorrhage. No midline shift. No evidence for acute infarction. Normal gra y/white matter differentiation. No areas of low density in the white matter. CEREBELLUM: No masses. No hemorrhage. No alteration of density. No evidence for acute infarction. EXTRAAXIAL SPACES: No fluid collections. No masses. ORBITS AND GLOBE: No intra- or extraconal masses. Normal contour of globe without masses. CALVARIUM: No fracture. PARANASAL SINUSES: No fluid or mucosal thickening. SOFT TISSUES: No mass or hematoma. OTHER: No other significant finding. IMPRESSION: NORMAL BRAIN CT WITHOUT CONTRAST. EVIDENCE OF ACUTE STROKE: NO. COMMENT: Quality ID # [id number]: Final reports with documentation of one or more dose reduction techniques (e.g., Automated exposure control, adjustment of the mA and/or kV according to patient size, use of iterative reconstruction technique) TECHNICAL DOCUMENTATION: JOB ID: [id number] MI-69 2010 [employer]- All Rights Reserved
[2017-03-08] MEDS ORDERED: NORMAL SALINE 1000 ML 1,000 ML IV ONE (11:56)
--- NOTE | 2017-03-08 12:02 | ER Document Report ---
ED Neuro Symptoms/Deficit - General Chief Complaint: Numbness Stated Complaint: LEFT SIDED NUMBNESS DIFFICULTY BREATHING Time Seen by Provider: 03/08/17 11:46 Information source: Patient Notes: 66-year-old female with metastatic stage IV breast cancer currently on her second round of chemotherapy who presents today stating around 10:30 PM she felt some numbness to her left arm and the left side of her face with some "spasms" to her left hand. Patient for around 1 week has had some right arm swelling with a negative Doppler DVT study. Patient states that the numbness and spasms have improved. She denies any weakness or numbness to her legs. She denies any headache, neck pain, chest pain, or fevers. Patient states while in the car she had some transient shortness of breath. She states that this is resolved. She currently denies any shortness of breath, again no chest pain, no cough, and no fevers. There has been no recent calf pain or leg swelling. TRAVEL OUTSIDE OF THE [place] IN LAST 30 DAYS: No - HPI Patient complains to provider of: Other - See above Onset: Other - See above Awoke with symptoms: No Symptoms are: Constant - But improved Duration: Better Quality of pain: No pain Severity: Mild Pain Level: Denies Was STROKE ALERT Called: Yes Baseline Cognitive: Alert, oriented X 3 Patient Orientation: Person, Place, Time, Events Altered sensation: LUE Associated symptoms: Other - See above Similar symptoms previously: No Recently seen / treated by doctor: No - Related Data Allergies/Adverse Reactions: No Known Allergies Allergy (Verified 02/16/17 11:38) Past Medical History - General Information source: Patient - Social History Smoking Status: Former Smoker Cigarette use (# per day): No Chew tobacco use (# tins/day): No Smoking Education Provided: No Frequency of alcohol use: None Drug Abuse: None Family History: Reviewed & Not Pertinent Patient has suicidal ideation: No Patient has homicidal ideation: No - Past Medical History Cardiac Medical History: Reports: Hx Hypertension Denies: Hx Coronary Artery Disease, Hx Heart Attack Pulmonary Medical History: Denies: Hx Asthma, Hx Bronchitis, Hx COPD, Hx Pneumonia, Hx Tuberculosis Neurological Medical History: Denies: Hx Cerebrovascular Accident, Hx Seizures Renal/ Medical History: Denies: Hx Peritoneal Dialysis Musculoskeltal Medical History: Denies Hx Arthritis Past Surgical History: Reports: Hx Cholecystectomy - 3 years ago, Hx Orthopedic Surgery - L ANKLE - Immunizations Hx Diphtheria, Pertussis, Tetanus Vaccination: Yes - UNSURE WHEN Review of Systems - Review of Systems Constitutional: denies: Fever EENT: denies: Eye discharge, Nose discharge Cardiovascular: denies: Chest pain, Palpitations Respiratory: Short of breath Gastrointestinal: denies: Diarrhea, Nausea, Vomiting Genitourinary: denies: Dysuria Musculoskeletal: denies: Leg swelling Skin: Other - no hives. denies: Rash Neurological/Psychological: Other - no slurred speech -: Yes All other systems reviewed and negative Physical Exam - Vital signs Vitals: Temp Pulse Resp BP Pulse Ox 97.5 F 127 H 28 H 174/99 H 97 03/08/17 11:34 03/08/17 11:34 03/08/17 11:34 03/08/17 11:34 03/08/17 11:34 Notes: Reviewed vital signs and nursing note as charted by RN. CONSTITUTIONAL: Alert and oriented and responds appropriately to questions. Well -appearing; well-nourished HEAD: Normocephalic; atraumatic EYES: PERRL ENT: Normal nose; no rhinorrhea; moist mucous membranes; pharynx without lesions noted NECK: Supple without meningismus; non-tender; no carotid bruits CARD: Tachycardia; no murmurs, no clicks, no rubs, no gallops; symmetric distal pulses RESP: Normal chest excursion without splinting or tachypnea; breath sounds clear and equal bilaterally ABD/GI: Normal bowel sounds; non-distended; soft, non-tender BACK: The back appears normal and is non-tender to palpation EXT: Normal ROM in all joints; non-tender to palpation; edema without erythema or fluctuance to the right arm from the mid humerus to the mid forearm SKIN: No acute lesions noted NEURO: CN II through XII are intact. Patient has 5 out of 5 bilateral upper and lower extremity strength. Patient has some mild decreased sensation to the left hand compared to the right. NIH score is calculated at a 1. PSYCH: The patient's mood and manner are appropriate. Grooming and personal hygiene are appropriate. Course - Re-evaluation Re-evalutation: 03/08/17 12:02 NIH score of 1. Stage IV chemotherapy metastatic breast cancer patient. Patient supposedly has had a recent potassium infusion secondary to an extremely low potassium secondary to the chemotherapy drugs. Patient has been taken to CT scan at this time. Given the NIH score of 1, with the patient's history, I do not believe that the patient is a good TPA candidate. 03/08/17 12:46 CT scan of the head as recorded. Patient's numbness has improved. Patient did have an episode of tachycardia to the 150s but is currently at 98. EKG shows a heart of 105, sinus tachycardia, normal axis, no obvious ST elevation or depression. We are awaiting the chemistry results. 03/08/17 16:35 Still no neurologic symptomatology. Patient denies any shortness of breath at this time. CT scan of the chest as recorded. We have provided IV potassium. Bilirubin is pretty much unchanged from previous laboratory value. White blood cell count and hemoglobin have decreased consistent with chemotherapy. I did call and speak directly with the patient's oncologist Dr. Garnett. He is also comfortable with the change in laboratory values and states he is comfortable with the patient being discharged home with strict return precautions and follow -up in his office. Family and I are in agreement with this plan. - Vital Signs Vital signs: Temp Pulse Resp BP Pulse Ox 97.5 F 108 H 21 H 156/91 H 100 03/08/17 11:34 03/08/17 11:47 03/08/17 13:46 03/08/17 13:46 03/08/17 13:46 - Laboratory Result Diagrams: 03/08/17 12:11 03/08/17 12:11 Laboratory results interpreted by me: 03/08/17 03/08/17 03/08/17 12:11 12:11 14:06 WBC 2.8 L RBC 3.54 L Hgb 9.6 L Hct 28.6 L RDW 21.4 H Potassium 3.0 L* BUN 4 L Creatinine 0.44 L Calcium 7.9 L Ionized Calcium Johny 0.94 L Total Bilirubin 1.8 H Direct Bilirubin 0.5 H AST 77 H Alkaline Phosphatase 336 H Total Protein 5.4 L Albumin 3.2 L Discharge - Discharge Clinical Impression: Left arm numbness, SOB (shortness of breath) Condition: Good Disposition: HOME, SELF-CARE Additional Instructions: Come back immediately for any return of weakness, numbness, muscle spasms, shortness of breath, chest pain, or any other acute problems. Please make sure that you follow-up with the oncologist and primary doctor as we have discussed.
[2017-03-08 12:33] LABS: ABSOLUTE LYMPHOCYTES (AUTO) 0.5 10^3/uL (0.5-4.7); ABSOLUTE MONOCYTES (AUTO) 0.1 10^3/uL (0.1-1.4); ABSOLUTE NEUT (AUTO) 2.2 10^3/uL (1.7-8.2); BASOPHILS % (AUTO) 0.8 % (0-2); EOSINOPHILS % (AUTO) 0.5 % (0-6); HEMATOCRIT 28.6 % (36.0-47.0); HEMOGLOBIN 9.6 g/dL (12.0-15.5); LYMPHOCYTES % (AUTO) 17.6 % (13-45); MEAN CORPUSCULAR HEMOGLOBIN 27.2 pg (27.0-33.4); MEAN CORPUSCULAR HGB CONC 33.6 g/dL (32.0-36.0); MEAN CORPUSCULAR VOLUME 81 fl (80-97); MONOCYTES % (AUTO) 3.6 % (3-13); PLATELET COUNT 216 10^3/uL (150-450); RED BLOOD COUNT 3.54 10^6/uL (3.72-5.28); RED CELL DISTRIBUTION WIDTH 21.4 % (11.5-14.0); SEGMENTED NEUTROPHILS % (AUTO) 77.5 % (42-78); TOTAL CELLS COUNTED % (AUTO) 100 %; WHITE BLOOD COUNT 2.8 10^3/uL (4.0-10.5)
[2017-03-08 12:45] LABS: ALANINE AMINOTRANSFERASE 29 U/L (9-52); ALBUMIN 3.2 g/dL (3.5-5.0); ALKALINE PHOSPHATASE 336 U/L (38-126); ANION GAP 12 (5-19); ASPARTATE AMINO TRANSFERASE 77 U/L (14-36); BILIRUBIN,DIRECT 0.5 mg/dL (0.0-0.4); BILIRUBIN,TOTAL 1.8 mg/dL (0.2-1.3); BLOOD UREA NITROGEN 4 mg/dL (7-20); CALCIUM 7.9 mg/dL (8.4-10.2); CARBON DIOXIDE 26 mmol/L (22-30); CHLORIDE 104 mmol/L (98-107); GLUCOSE 109 mg/dL (75-110); SODIUM 141.7 mmol/L (137-145); TOTAL PROTEIN 5.4 g/dL (6.3-8.2)
--- NOTE | 2017-03-08 12:47 | RADIOLOGY REPORT (SQ) ---
EXAM DESCRIPTION: CHEST PA/LAT COMPLETED DATE/TIME: 03/08/2017 12:36 pm REASON FOR STUDY: Shortness of breath. History of breast cancer. COMPARISON: Chest x-ray 05/26/2016. CT chest 01/02/2017. EXAM PARAMETERS: NUMBER OF VIEWS: two views TECHNIQUE: Digital Frontal and Lateral radiographic views of the chest acquired. RADIATION DOSE: NA LIMITATIONS: none FINDINGS: LUNGS AND PLEURA: There is a small right pleural effusion with right basilar ground-glass opacity. Redemonstration of a 14 mm peripherally calcified nodule at the right lower lobe, may repre sent a granuloma. No pneumothorax. MEDIASTINUM AND HILAR STRUCTURES: No masses or contour abnormalities. HEART AND VASCULAR STRUCTURES: Heart normal size. No evidence for failure. BONES: Degenerative changes in the spine. HARDWARE: Left-sided Port-A-Cath with the tip overlying the region of the SVC. IMPRESSION: Small right pleural effusion with right basilar ground-glass opacity, may represent atel ectasis or pneumonia. TECHNICAL DOCUMENTATION: JOB ID: [id number] OH-[id number] 2010 [employer]- All Rights Reserved
[2017-03-08] MEDS ORDERED: POTASSI CL 20 MEQ/50 ML RIDER 20 MEQ/50 ML RTUPB IV ONE (13:30)
--- NOTE | 2017-03-08 15:02 | RADIOLOGY REPORT (SQ) ---
EXAM DESCRIPTION: CTA CHEST COMPLETED DATE/TIME: 03/08/2017 2:23 pm REASON FOR STUDY: 17, metastatic breast ca; shortness of breath. COMPARISON: Chest x-ray 03/08/2017. CT chest 01/02/2017. TECHNIQUE: CT scan of the chest performed using helical scanning technique with dynamic intravenous contrast injection. Images reviewed with lung, soft tissue and bone windows. Reconstructed coronal and sagittal MPR images reviewed. Additional 3 dimensional post-processing performed to develop Maximal Intensity Projection images ([place] P). All images stored on PACS. All CT scanners at this facility use dose modulation, iterative reconstruction, and/or weight based d osing when appropriate to reduce radiation dose to as low as reasonably achievable (ALARA). [facility]: Dose Right [facility]: CareDose [facility]: Dose Right [facility]: Teradose 4D [facility]: cloudswave CONTRAST TYPE AND DOSE: contrast/concentration: Isovue 370.00 mg/ml; Total Contrast Delivered: 59.0 ml; Total Saline Delivered: 100.0 ml Contrast bolus optimized for the pulmonary arteries. Not diagnostic for the aorta. RENAL FUNCTION: Creatinine 0.44 RADIATION DOSE: CT Rad equipment meets quality standard of care and radiation dose reduction techniq ues were employed. CTDIvol: 13.2 - 14.3 mGy. DLP: 551 mGy-cm. . LIMITATIONS: Motion artifact. FINDINGS: LUNGS AND PLEURA: There are small bilateral pleural effusions with mild bibasilar atelecta sis. No pneumothorax. There is a 12 mm nodule in the left upper lobe extending to the lateral pleur a (image 59/135). Calcified granuloma at the right lower lobe. There is pleural scarring at the sunil g apices. AORTA AND GREAT VESSELS: No thoracic aortic aneurysm. Contrast bolus not optimized for the aorta. HEART: No pericardial effusion. No significant coronary artery calcifications. PULMONARY ARTERIES: No emboli visualized in the main pulmonary arteries or the segmental branches. HILAR AND MEDIASTINAL STRUCTURES: Calcified lymph nodes are seen at the mediastinum and hilar regions . HARDWARE: There is a left-sided Port-A-Cath with the tip at the SVC. UPPER ABDOMEN: Numerous calcifications at the liver and spleen, probably representing granuloma as. THYROID AND OTHER SOFT TISSUES: No masses. No adenopathy. BONES: Diffuse heterogeneous appearance, consistent with osseous metastasis. 3D MIPS: Confirm above findings. OTHER: There is skin thickening at the right breast with increased soft tissue density. IMPRESSION: 1. No pulmonary emboli. 2. A 12 mm pulmonary nodule in the left upper lobe extending to the pleura, metastatic disease canno t be excluded. PET/ CT recommended for further evaluation. 3. Small bilateral pleural effusions and mild bibasilar atelectasis. 4. Remote granulomatous disease. 5. Skin thickening at the right breast with increased soft tissue density, probably corresponding to known malignancy. 6. Diffuse skeletal metastasis. COMMENT: Quality ID # [id number]: Final reports with documentation of one or more dose reduction techniques (e.g., Automated exposure control, adjustment of the mA and/or kV according to patient size, use of iterative reconstruction technique) TECHNICAL DOCUMENTATION: JOB ID: [id number] OH-[id number] 2010 [employer]- All Rights Reserved
--- NOTE | 2017-03-08 16:29 | EKG REPORT ---
SEVERITY:- BORDERLINE ECG - SINUS TACHYCARDIA PROBABLE LEFT ATRIAL ABNORMALITY BORDERLINE PROLONGED QT INTERVAL : Confirmed by: Luis Fry MD 08-Mar-2017 16:27:58
[2017-03-08] MEDS ORDERED: ACETAMINOPHEN 325 MG TABLET PO ONE (17:53)
[2017-03-08 19:05] VITALS: BP 144/88
== END 2017-03-08 18:35 | disposition home or self-care (01) ==
LOC: ER 11:23
DX: R20.0 Anesthesia of skin (principal); R06.02 Shortness of breath; C50.911 Malignant neoplasm of unspecified site of right female breast; C79.51 Secondary malignant neoplasm of bone; Z79.899 Other long term (current) drug therapy; R00.0 Tachycardia, unspecified; R60.0 Localized edema; R25.2 Cramp and spasm; I10 Essential (primary) hypertension; Z87.891 Personal history of nicotine dependence
CPT/HCPCS: 93005; 36591; 99285; 96361; 96365; 96366; 36415; 87040; 82962; 85025; 80053; 84484; 82330; 71046; 70450; 71275; 93010; A9270; J3480; J7030